=== PATIENT | female | born 1970 | race Caucasian/White ===

== ENCOUNTER 2021-09-19 10:44 | Emergency (ER) | payer BC, OTHER ==
[~2021-09-19] VITALS: Ht 165.1 cm; Wt 68.0 kg
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
--- NOTE | 2021-09-19 11:10 | NUR ---
DR CURTIS AT BEDSIDE
[2021-09-19 11:45] LABS: CALCIUM, SERUM 8.4 mg/dL (8.5-10.1); CARBON DIOXIDE 27 mmol/L (21-32); CHLORIDE 101 mmol/L (98-107); CREATININE 0.6 mg/dL (0.6-1.3); GLUCOSE 106 mg/dL (74-106); POTASSIUM 4.1 mmol/L (3.5-5.1); SODIUM SERUM 136 mmol/L (136-145); UREA NITROGEN, BLOOD 15 mg/dL (7-18)
[2021-09-19 11:47] LABS: BASOPHILS % (AUTO) 0.7 % (0.0-2.0); EOSINOPHILS % (AUTO) 0.9 % (0.0-6.0); HEMATOCRIT 41 % (33-45); HEMOGLOBIN 13.8 g/dL (11.5-14.8); LYMPHOCYTES # (AUTO) 1.4 K/uL (0.8-4.8); LYMPHOCYTES % (AUTO) 27.9 % (20.0-44.0); MEAN CORPUSCULAR HGB CONC 34 g/dl (31.0-36.0); MEAN CORPUSCULAR VOLUME 87 fL (82-100); MONOCYTES # (AUTO) 0.4 K/uL (0.1-1.30); MONOCYTES % (AUTO) 7.2 % (2.0-12.0); NEUTROPHILS # (AUTO) 3.2 K/uL (1.8-8.9); NEUTROPHILS % (AUTO) 63.3 % (43.0-81.0); PLATELET COUNT (AUTO) 241 K/uL (150-450); RED BLOOD CELL COUNT(AUTO) 4.72 MIL/uL (4.0-5.2)
[2021-09-19 11:49] LABS: ACETAMINOPHEN 0 ug/ml (10-30); ALCOHOL, BLOOD < 3 mg/dL (0-0)
--- NOTE | 2021-09-19 11:50 | NUR ---
URINE SAMPLE COLLECTED AND SENT TO LAB
[2021-09-19 12:11] LABS: BILIRUBIN,URINE NEGATIVE (NEGATIVE); COLOR,URINE YELLOW (YELLOW); LEUKOCYTE ESTERASE ,URINE NEGATIVE (NEGATIVE); NITRITE, URINE NEGATIVE (NEGATIVE); PROTEIN,URINE NEGATIVE (NEGATIVE); UGLUCOSE NEGATIVE (NEGATIVE); UROBILINOGEN,URINE 0.2 EU/dL (0.2)
--- NOTE | 2021-09-19 12:30 | NUR ---
SS Note: SS consult requested for this 50 year old [place]yan[place] female who came in with complaints of chest pain. Upon SS consult the pt. is alert & oriented x 4 and appears well-groomed and teary eyed. Pt. makes good eye contact and her thought process and thought content are WNL. The pt. states she was at work when she began having chest pain. Pt. states she came to the hospital to make sure everything is okay as her brother recently and he had similar symptoms. SW explored why she was teary eyed. Pt. spoke about biopsychosocial stressors, including current divorce, no familial support, work stress. Pt. states she feels hopeless but does not have thoughts of suicide. Pt. denies HI and denies hallucinations. SW used active listening, validated her emotions, and encouraged her to use positive coping skills. Pt. was receptive and stated she cries daily and it helps her get her emotions out. SW explored if pt. has any mental health services. Per pt. she has a therapist, Kimi Rowe who she speaks to regularly as needed.Pt. denies any previous Hx. of mental health and denies being on any psychotropic medication. SW gave verbal report to Hero HALE. DC Plan: Per pt. she will discharge back home to her home in [place] when ready. Pt. states she has a vehicle. [facility] provided pt. with mental health resources including psychiatric resources. hotlines to call for emergencies. [facility] provided the pt. with the following resources and pt. accepted them. Counseling--Outpatient [facility] [address], [place] [address] (Specializes in in-depth psychotherapy for emotional distress: anxiety, depression, interpersonal conflicts, life transitions, childhood abuse) [facility] [address] [place] [address] (Assist with solving problem marital difficulties, separation & divorce, aging parents, & grief, chronic & terminal illness) [facility] [address] [place] [address] (Deal with loss & grief, anxiety, marital difficulties) [facility] Health [facility] [address], [address] [place], [place] [id number] (Provide in-home mental services to people who are incapable of leaving their homes) [facility] [address] [place] [address] [facility] [address] [place] [address] PSYCHIATRIC OUTPATIENT SERVICES [facility] Partial Hospitalization and Intensive Outpatient Program (Managed Care and [place] Only) [address] [facility] [address]; [phone] [facility] Partial Hospitalization and Outpatient Program [address] [place] [address]; [phone] [facility] [place] [address] [place], [place] [phone] [facility] Partial Hospitalization and Outpatient [address] [place] ; [phone] ;[phone] [facility] [address] [place] [address] Mental Health Services [facility] [address] [place] [address] Services: Outpatient therapy for children, teens, young adults, adults, older adults, and families; Psychiatric services, medication support [place] [facility] and Hotline Telephone Numbers: 24-Hour service unless stated [place] Mental Health/Crisis Line........[phone] Suicide Prevention Center (24 Hours).......[phone] Suicide Prevention Crisis Center.......[phone] (24 Hours) Alcoholics Anonymous (24 Hours)..........[phone] National Crisis Hotlines: Alcohol and Drug Helpline - Provides referrals to local facilities where adolescents and adults can seek help. Brief intervention. BRAULIO Helpline [facility] 6-075-153-BRAULIO National Youth Crisis Hotline [facility] Provides free information on specific disorders, referral directory to mental health providers, national directory of local mental health associations (M-F, 9-5 EST) [place] [facility] Information Line: Provide sinformation and literature on mental illness by disorder-for professionals and general public. Addendum: 09/19/21 at 1432 by GREGORIO STEVENSON Patient reported that she is currently safe and moved to different home located in [place]. Pt.'s resides int [facility].
[2021-09-19 12:52] LABS: BACTERIA,URINE None seen /HPF (None Seen); SQUAMOUS EPITHELIAL CELL,UR Few /HPF (None Seen); WBC,URINE 0-2 /HPF (0-3)
--- NOTE | 2021-09-19 13:02 | NUR ---
[employer] AT BEDSIDE FOR INVESTIGATION
[2021-09-19] MEDS ORDERED: IBUPROFEN 600 MG TABLET ONE (14:18)
--- NOTE | 2021-09-19 14:24 | NUR ---
IV removed. Catheter intact and site benign. Pressure and 4x4 applied to site. No bleeding noted.Patient discharged to home in stable condition. Written and verbal after care instructions given. Patient verbalizes understanding of instruction.
[2021-09-19 14:25] VITALS: BP 147/92
[2021-09-19] MEDS ORDERED: IBUPROFEN 600 MG TABLET PO ONE (14:30)
== END 2021-09-19 14:26 | disposition home or self-care (01) ==
LOC: ER 10:45
DX: R07.89 Other chest pain (principal); I10 Essential (primary) hypertension; Z88.2 Allergy status to sulfonamides
CPT/HCPCS: 36415; 71045-TC; 80048-TC; 81001; 84484-TC; 85025-TC; 85378-TC; G0480